=== PATIENT | male | born 1935 | race Caucasian/White ===

== ENCOUNTER 2019-09-04 07:45 | Emergency (ER) | payer OTHER ==
[~2019-09-04] VITALS: Ht 175.3 cm; Wt 88.5 kg
[~2019-09-04 07:45] MED LIST: AMOX1TAB5 PO; COREG CR20 MG; Coreg PO; FLAGYL500MG PO; GLUCOPHAGE XR500 MG; INTESTINEX1 CA1 PO; NORVASC 5MG TAB PO; PROTONIX40 MG PO; URSODIOL500 MG PO; Zestril PO
[2019-09-04] MEDS ORDERED: CILOSTAZOL50 MG (08:04)
[2019-09-04] MEDS ORDERED: GLIMEPIRIDE4 M1 (08:04)
[2019-09-04] MEDS ORDERED: TOPROL XL25 M1 (08:05)
[2019-09-04] MEDS ORDERED: LOSARTAN-HCTZ1 EAC2 (08:07)
[2019-09-04] MEDS ORDERED: DIOVAN160 M1 (08:07)
[2019-09-04] MEDS ORDERED: ZESTRIL20 MG (08:08)
[2019-09-04] MEDS ORDERED: GRALISE600 MG (08:08)
== END 2019-09-04 10:32 | disposition home or self-care (01) ==
LOC: ER 07:45
DX: M54.5 Low back pain (principal)

== ENCOUNTER 2020-08-11 10:07 | Inpatient (IN) | payer OTHER ==
[~2020-08-11] VITALS: Ht 175.3 cm; Wt 87.1 kg
[~2020-08-11 10:07] MED LIST changes: +CILOSTAZOL50 MG; +DIOVAN160 M1; +GLIMEPIRIDE4 M1; +GRALISE600 MG; +LOSARTAN-HCTZ1 EAC2; +TOPROL XL25 M1; +ZESTRIL20 MG
[2020-08-11] MEDS ORDERED: FORTAMET500 MG (10:32)
[2020-08-11] MEDS ORDERED: PLAVIX75 MG (10:33)
== END 2020-08-13 19:30 | disposition home or self-care (01) | DRG 641 ==
LOC: ER 10:07 → MEDI 08-12 12:47
PROVIDERS: ADMIT Internal Medicine; ATTEND Internal Medicine
PROC: BW28ZZZ Computerized Tomography (CT Scan) of Head (ICD-10-PCS; principal; 2020-08-11)
DX: E16.2 Hypoglycemia, unspecified (principal); N17.8 Other acute kidney failure; Z79.84 Long term (current) use of oral hypoglycemic drugs; E11.9 Type 2 diabetes mellitus without complications; E11.40 Type 2 diabetes mellitus with diabetic neuropathy, unspecified; E86.0 Dehydration; I10 Essential (primary) hypertension; I73.9 Peripheral vascular disease, unspecified; H91.90 Unspecified hearing loss, unspecified ear; Z20.822 Contact with and (suspected) exposure to COVID-19

== ENCOUNTER 2023-02-20 20:23 | Emergency (ER) | payer OTHER ==
[~2023-02-20] VITALS: Ht 175.3 cm; Wt 79.4 kg
[~2023-02-20 20:23] MED LIST changes: +FORTAMET500 MG; +PLAVIX75 MG
[2023-02-20] MEDS ORDERED: LOSARTAN-HCTZ1 EAC2 PO (20:37)
[2023-02-20] MEDS ORDERED: FARXIGA5 MG PO (20:37)
[2023-02-20] MEDS ORDERED: GABAPENTIN300 M2 PO (20:38)
[2023-02-21 00:38] LABS: HEMOGLOBIN 14.3 g/dL (13-16.00); MEAN CELL VOLUME 93.4 fL (80.0-100.00); MEAN CORPUSCULAR HEMOGLOBIN 31.9 pg (27.00-32.0); MEAN CORPUSCULAR HGB CONC 34.1 g/dl (32.0-36.0); PLATELET COUNT 143 K/uL (150-450); RED BLOOD COUNT 4.49 M/uL (4.00-6.00); RED CELL DISTRIBUTION WIDTH 13.5 % (11.5-14.5)
[2023-02-21 00:41] LABS: PH,URINE 5.5 (5.0-8.0); URINE APPEARANCE Clear; URINE BILIRRUBIN Negative (NEGATIVE); URINE BLOOD Trace; URINE COLOR Yellow; URINE LEUKOCYTE Negative; URINE NITRATE Negative; URINE PROTEIN Trace (NEGATIVE); URINE UROBILINOGEN 0.2 E.U./dl
[2023-02-21 00:44] LABS: URINE BACTERIA 17.6 uL (0.0-1933); URINE RBC 4.4 uL (0.0-20.8)
[2023-02-21 00:45] LABS: URINE EPITHELIAL CELLS 1.2 uL (0.0-38.8); URINE GLUCOSE >=1000 MG/DL (NEGATIVE); URINE WBC 0.1 uL (0.0-23.2)
[2023-02-21 00:48] LABS: CALCIUM 9.4 mg/dL (8.5-10.1); CREATININE SERUM 1.8 mg/dL (0.70-1.30); GFR 36.04; POTASSIUM 4.63 mEq/L (3.5-5.1)
[2023-02-21] MEDS ORDERED: PAXLOVID 150-11 EAC1 PO (02:18)
== END 2023-02-21 02:24 | disposition home or self-care (01) ==
LOC: ER 20:23
DX: U07.1 COVID-19 (principal); R53.81 Other malaise

== ENCOUNTER 2024-03-23 15:49 | Emergency (ER) | payer OTHER ==
[~2024-03-23] VITALS: Ht 175.3 cm; Wt 73.5 kg
[~2024-03-23 15:49] MED LIST changes: +FARXIGA5 MG PO; +GABAPENTIN300 M2 PO; +LOSARTAN-HCTZ1 EAC2 PO; +PAXLOVID 150-11 EAC1 PO
== END 2024-03-24 01:39 | disposition home or self-care (01) ==
LOC: ER 15:51
DX: S09.8XXA Other specified injuries of head, initial encounter (principal); W18.39XA Other fall on same level, initial encounter; Y93.89 Activity, other specified; Y92.013 Bedroom of single-family (private) house as the place of occurrence of the external cause; E11.9 Type 2 diabetes mellitus without complications; N18.9 Chronic kidney disease, unspecified; I10 Essential (primary) hypertension

== ENCOUNTER 2024-03-28 18:14 | Inpatient (IN) | payer OTHER ==
[~2024-03-28] VITALS: Ht 175.3 cm; Wt 76.2 kg
--- NOTE | 2024-03-28 18:21 | NUR ---
SE RECIBE PACIENTE ALERTA Y ORIENTADO X3, EN COMPANIA DE FAMILIAR QUIEN REFIERE EL MISMO PRESENTA DIFICULTAD RESPIRATORIA. PARAMEDICOS INDICAN QUE COLOCARON CN 4LT/MIN. SE OBSERVA CANALIZACION EN BRAZO DERECHO, PATENTE,ESTEPHANIE DE EDEMA O ERITEMA. PACIENTE SATURANDO 95% SIN CN AL MOMENTO. SE REALIZA EKG Y DUGLAS DE SIGNOS VITALES.
[2024-03-28] MEDS ORDERED: 0.9 % SODIUM CHLORIDE 1,000 ML IV STA (18:42)
[2024-03-28] MEDS ORDERED: KETOROLAC TROMETHAMINE 30 MG VIAL IV STA (18:43)
[2024-03-28] MEDS ORDERED: CIPROFLOXACIN IN 5 % DEXTROSE 400 MG/200 ML PIGGYBAG IV STA ×2 (18:43→22:10)
[2024-03-28] MEDS ORDERED: KETOROLAC TROMETHAMINE 30 MG VIAL ONE (19:06)
[2024-03-28] MEDS ORDERED: CIPROFLOXACIN IN 5 % DEXTROSE 400 MG/200 ML PIGGYBAG IV ONE (19:06)
[2024-03-28 19:34] LABS: HEMATOCRIT 38.7 % (39.0-48.0); MEAN CELL VOLUME 94.9 fL (80.0-100.00); MEAN CORPUSCULAR HEMOGLOBIN 31.8 pg (27.00-32.0); MEAN CORPUSCULAR HGB CONC 33.5 g/dl (32.0-36.0); PLATELET COUNT 168 K/uL (150-450); RED BLOOD COUNT 4.08 M/uL (4.00-6.00); RED CELL DISTRIBUTION WIDTH 13.7 % (11.5-14.5)
[2024-03-28 19:56] LABS: INR 1.36; PARTIAL THROMBOPLASTIN TIME 28.3 SECONDS (22.0-34.0); PROTHROMBIN TIME 14.5 SECONDS (9.0-11.5)
--- NOTE | 2024-03-28 20:01 | NUR ---
SE ORIENTA APTE Y FAMILIAR SOBRE [place] MEDICO Y AMBOS REFIEREN ENTENDER. SE CANALIZA A PTE CON ANGIO #20. SE RECOLECTAN MUESTRAS DE LAB Y SE ADMINSITRAN MEDICAMENTOS [place] ORDEN MEDICAS BAJO MEDIDAS ASEPTICAS. SE COLOCA SONDA URINARIA LEWIS LA MISMA PATENTE BAJANDO A GRAVEDAD ORINA COLOR AMARILLO OPACO CON SEDIMENTACION PRESENTE EL MISMO FUE COLOCADO DE FORMA ESTERIL.
[2024-03-28 20:11] LABS: ALBUMIN 2.8 gm/dL (3.4-5.0); BILIRUBIN TOTAL 0.6 mg/dL (0.3-1.2); CALCIUM 8.8 mg/dL (8.5-10.1); CREATININE SERUM 2.02 mg/dL (0.70-1.30); GFR 31.47; GLOBULINA 3.5 G/DL (2.4-3.5); POTASSIUM 4.06 mEq/L (3.5-5.1); TOTAL PROTEIN 6.3 gm/dL (6.4-8.2)
[2024-03-28 20:41] LABS: PH,URINE 6.5 (5.0-8.0); URINE APPEARANCE Cloudy; URINE BILIRRUBIN Negative (NEGATIVE); URINE BLOOD Moderate; URINE COLOR Yellow; URINE KETONE Negative (NEGATIVE); URINE LEUKOCYTE Moderate; URINE NITRATE Negative; URINE UROBILINOGEN 0.2 E.U./dl
[2024-03-28 20:45] LABS: URINE BACTERIA 2720.7 uL (0.0-1933); URINE EPITHELIAL CELLS 1.7 uL (0.0-38.8); URINE RBC 57.4 uL (0.0-20.8); URINE WBC 1752.3 uL (0.0-23.2)
[2024-03-28 21:21] LABS: URINE CAST 0.73 uL (0.0-1.40); URINE GLUCOSE >=1000 MG/DL (NEGATIVE); URINE PROTEIN 100 (NEGATIVE)
--- NOTE | 2024-03-29 07:48 | NUR ---
PACIENTE MASCULINO ALERTA Y ORIENTADO X3 ENCOMPANIA DE FAMILIAR A QUIEN SE LE ORIENTA SOBRE CONTINUIDAD DE TRATAMIETNO Y REFIERE ENTNEDER, SE OBSERVA PACIENTE EN ALESHA BARANDAS ELEVADAS Y EN LOPEZ NIVEL MAS BAJO. PACIENTE CANALIZADO CON VENOPUNCION PATENTE, ESTEPHANIE DE EDEMA Y ERITEMA, RECIBIENDO IV FLUIDS [place] ORDEN. SE OBSERVA CON SONDA URINARIA A GRAVEDAD CON EGRESO COLOR AMARILLO CARLYN CON SEDIMENTACION Y ESTEPHANIE DE SANGRADO.
[2024-03-29] MEDS ORDERED: LOSARTAN/HYDROCHLOROTHIAZIDE 1 UDTAB TABLET PO SCH (10:44)
[2024-03-29] MEDS ORDERED: 0.9 % SODIUM CHLORIDE 1,000 ML IV SCH (10:45)
[2024-03-29] MEDS ORDERED: ACETAMINOPHEN 325 MG TABLET PO PRN (10:45)
[2024-03-29] MEDS ORDERED: DEXTROSE 50 % IN WATER 0.5 G/ML DISP.SYRIN IV PRN (10:45)
[2024-03-29] MEDS ORDERED: INSULIN LISPRO 1,000 UNIT/10 ML UNITS SUBCUTANEO PRN (10:45)
[2024-03-29 11:08] VITALS: BP 130/80
[2024-03-29] MEDS ORDERED: PANTOPRAZOLE SODIUM 40 MG in 0.9 % SODIUM CHLORIDE 8 ML IV PUSH SCH (11:32)
[2024-03-29] MEDS ORDERED: ACETAMINOPHEN 500 MG GEL..CAP PO PRN (12:00)
[2024-03-29] MEDS ORDERED: PIPERACILLIN/TAZOBACTAM SODIUM 3.375 GM in 0.9 % SODIUM CHLORIDE 100 ML IV SCH (12:00)
[2024-03-29] MEDS ORDERED: PIPERACILLIN/TAZOBACTAM SODIUM 3.375 GM VIAL IV ONE (12:20)
[2024-03-29] MEDS ORDERED: ENOXAPARIN SODIUM 30 MG/0.3 ML SYRINGE SUBCUTANEO SCH (12:33)
[2024-03-29] MEDS ORDERED: INSULIN LISPRO 1,000 UNIT/10 ML UNITS SUBCUTANEO ONE (12:33)
[2024-03-29 13:14] LABS: ALBUMIN 2.7 gm/dL (3.4-5.0); C-REACTIVE PROTEIN 15.8 MG/DL (0.00-0.29); CALCIUM 8.9 mg/dL (8.5-10.1); CREATININE SERUM 1.72 mg/dL (0.70-1.30); GFR 37.89; PHOSPHOROUS 3.1 mg/dL (2.5-4.9); POTASSIUM 4.49 mEq/L (3.5-5.1)
[2024-03-29] MEDS ORDERED: CEFTRIAXONE SODIUM 2,000 MG in 0.9 % SODIUM CHLORIDE 100 ML IV SCH (17:00)
[2024-03-29 17:37] VITALS: BP 154/57
[2024-03-29] MEDS ORDERED: INSULIN LISPRO 1,000 UNIT/10 ML UNITS SUBCUTANEO SCH (19:45)
[2024-03-29] MEDS ORDERED: INSULIN GLARGINE,HUM.REC.ANLOG 1,000 UNITS/10 ML UNITS SUBCUTANEO SCH (21:00)
[2024-03-30 02:26] VITALS: BP 147/53; O2SAT 98
[2024-03-30 06:16] LABS: HEMATOCRIT 40.9 % (39.0-48.0); HEMOGLOBIN 13.8 g/dL (13-16.00); MEAN CELL VOLUME 94.7 fL (80.0-100.00); MEAN CORPUSCULAR HEMOGLOBIN 31.9 pg (27.00-32.0); MEAN CORPUSCULAR HGB CONC 33.7 g/dl (32.0-36.0); PLATELET COUNT 162 K/uL (150-450); RED BLOOD COUNT 4.32 M/uL (4.00-6.00); RED CELL DISTRIBUTION WIDTH 13.4 % (11.5-14.5)
[2024-03-30 06:54] LABS: CALCIUM 8.6 mg/dL (8.5-10.1); CREATININE SERUM 1.84 mg/dL (0.70-1.30); GFR 35.05; POTASSIUM 3.59 mEq/L (3.5-5.1)
[2024-03-30 08:00] VITALS: BP 184/69
[2024-03-30 09:00] VITALS: BP 151/63
[2024-03-30] MEDS ORDERED: CLOPIDOGREL BISULFATE 75 MG TABLET PO SCH (11:17)
[2024-03-30] MEDS ORDERED: INSULIN LISPRO 1,000 UNIT/10 ML UNITS SUBCUTANEO PRN (14:15)
[2024-03-30 17:55] VITALS: BP 155/75
[2024-03-30] MEDS ORDERED: MINERAL OIL 30 ML BLIST.PACK PO ONE (20:30)
[2024-03-30] MEDS ORDERED: MAGNESIUM HYDROXIDE 30 ML BLIST.PACK PO ONE (20:30)
[2024-03-30] MEDS ORDERED: LACTULOSE 20 G/30 ML BLIST.PACK PO ONE (20:30)
[2024-03-30] MEDS ORDERED: GABAPENTIN 800 MG TABLET PO SCH (21:00)
[2024-03-31 01:00] VITALS: BP 165/69
[2024-03-31 08:24] VITALS: BP 183/63
[2024-03-31] MEDS ORDERED: GABAPENTIN 300 MG CAPSULE PO SCH (09:00)
[2024-03-31 09:20] LABS: HEMATOCRIT 42.1 % (39.0-48.0); MEAN CELL VOLUME 93.5 fL (80.0-100.00); MEAN CORPUSCULAR HEMOGLOBIN 31.2 pg (27.00-32.0); MEAN CORPUSCULAR HGB CONC 33.4 g/dl (32.0-36.0); PLATELET COUNT 168 K/uL (150-450); RED CELL DISTRIBUTION WIDTH 13.4 % (11.5-14.5)
[2024-03-31 10:15] LABS: CALCIUM 8.6 mg/dL (8.5-10.1); CREATININE SERUM 1.45 mg/dL (0.70-1.30); GFR 46.14; POTASSIUM 3.47 mEq/L (3.5-5.1)
[2024-03-31 17:46] VITALS: BP 160/61; O2SAT 97
[2024-04-01 02:48] VITALS: BP 190/86
[2024-04-01] MEDS ORDERED: AMLODIPINE BESYLATE 5 MG TABLET PO SCH (09:00)
[2024-04-01 09:20] VITALS: BP 172/58; O2SAT 95
== END 2024-04-01 11:04 | disposition home or self-care (01) | DRG 690 ==
LOC: ER 18:14 → SEC-K 03-29 11:02 → MEDJ 03-29 11:02 → MEDI 03-29 12:10 → MEDJ 03-29 12:15
PROVIDERS: General Practice; ADMIT Student in an Organized Health Care Education/Training Program; ATTEND Student in an Organized Health Care Education/Training Program
PROC: BW21ZZZ Computerized Tomography (CT Scan) of Abdomen and Pelvis (ICD-10-PCS; principal; 2024-03-28)
DX: N39.0 Urinary tract infection, site not specified (principal); N41.0 Acute prostatitis; N17.9 Acute kidney failure, unspecified; I12.9 Hypertensive chronic kidney disease with stage 1 through stage 4 chronic kidney disease, or unspecified chronic kidney disease; N13.8 Other obstructive and reflux uropathy; E86.0 Dehydration; R33.8 Other retention of urine; B96.4 Proteus (mirabilis) (morganii) as the cause of diseases classified elsewhere; E11.22 Type 2 diabetes mellitus with diabetic chronic kidney disease; N18.9 Chronic kidney disease, unspecified; Z79.4 Long term (current) use of insulin; N40.1 Benign prostatic hyperplasia with lower urinary tract symptoms; R41.82 Altered mental status, unspecified; I73.89 Other specified peripheral vascular diseases; I25.10 Atherosclerotic heart disease of native coronary artery without angina pectoris

== ENCOUNTER 2024-08-19 10:57 | Outpatient (CLI) | payer OTHER | END 2024-08-19 11:00 | disposition home or self-care (01) | LOC: SONOGRAMA 10:57 | DX: N40.1 Benign prostatic hyperplasia with lower urinary tract symptoms (principal); R33.9 Retention of urine, unspecified; N50.9 Disorder of male genital organs, unspecified; N50.1 Vascular disorders of male genital organs ==

== ENCOUNTER 2025-02-08 09:38 | Outpatient (CLI) | payer OTHER | END 2025-02-08 09:39 | disposition home or self-care (01) | LOC: RAD 09:38 | PROVIDERS: ATTEND Surgery | DX: Z01.810 Encounter for preprocedural cardiovascular examination (principal) ==